=== PATIENT | female | born 1965 | race Caucasian/White ===

== ENCOUNTER → 2020-07-07 | Outpatient (CLI) | payer OTHER ==
[~2020-07-07] MED LIST: LISINOPRIL10 MG; MUCINEX600 MG PO; PREDNISONE50 MG PO; VENTOLIN17 GM INH; ZPAK PO
== END ==
LOC: CAT 13:34
PROVIDERS: ATTEND Internal Medicine
DX: Z12.2 Encounter for screening for malignant neoplasm of respiratory organs (principal); J84.10 Pulmonary fibrosis, unspecified; Z87.891 Personal history of nicotine dependence

== ENCOUNTER → 2021-07-08 | Outpatient (CLI) | payer OTHER | LOC: CAT 10:08 | PROVIDERS: ATTEND Internal Medicine | DX: Z12.2 Encounter for screening for malignant neoplasm of respiratory organs (principal); J43.9 Emphysema, unspecified; D71 Functional disorders of polymorphonuclear neutrophils; Z87.891 Personal history of nicotine dependence ==

== ENCOUNTER → 2021-07-28 | Outpatient (CLI) | payer OTHER | LOC: ULTRA 09:01 | PROVIDERS: ATTEND Family Medicine | DX: K76.0 Fatty (change of) liver, not elsewhere classified (principal); R79.89 Other specified abnormal findings of blood chemistry ==